=== PATIENT | male | born 1975 | race Caucasian/White ===

== ENCOUNTER 2023-07-15 01:49 | Emergency (ER) | payer SELFPAY ==
[~2023-07-15] VITALS: Ht 170.2 cm; Wt 77.6 kg
[2023-07-15 01:58] VITALS: BP 127/85; PULSE 86; RESP 18; TEMP 97.5; O2SAT 98
== END 2023-07-15 04:13 | disposition home or self-care (01) ==
LOC: ER 01:49
DX: T16.2XXA Foreign body in left ear, initial encounter (principal); X58.XXXA Exposure to other specified factors, initial encounter
CPT/HCPCS: 69200; 99284